=== PATIENT | female | born 1955 | race Hispanic/Latino ===

== ENCOUNTER 2017-02-27 06:46 | Day surgery (SDC) | payer MEDICARE ==
[2017-01-01 10:44] VITALS: BMI 30.2
[2017-02-27] MEDS ORDERED: Lactated Ringer's 1,000 ML IV ONE ×2 (07:41→11:30)
[2017-02-27] MEDS ORDERED: Lidocaine 1% Inj (20ml) ONE (09:10)
[2017-02-27] MEDS ORDERED: Midazolam 2 MG/2 ML VIAL ONE (10:36)
[2017-02-27] MEDS ORDERED: Propofol 10 mg/ml Inj (20 ML) ONE (10:36)
--- NOTE | 2017-02-27 11:25 | NM ---
HISTORY: 61Y Year old female with biopsy proven right to breast cancer. TECHNIQUE: Multiple injections of 150 uCi of 99m Tc filtered sulfur colloid (total volume of 0.8 Ml) were administered into the right breast tissue surrounding the lesion site. Anterior and oblique projection images of the chest were subsequently obtained. FINDINGS: 4 injection sites documented. Radionuclide was not visible beyond the injection sites on initial images and delayed images. IMPRESSION: [place] node procedure performed per institutional protocol. The patient was transported to the surgical suite at the conclusion of this study.
[2017-02-27] MEDS ORDERED: Bacitracin Opht OINT 3.5GM OU ONE (11:55)
[2017-02-27] MEDS ORDERED: Lactated Ringer's 500 ML IV ONE (12:00)
[2017-02-27] MEDS ORDERED: Oxycodone/Acetaminophen 5/325 mg Tab PO PRN (12:09)
--- NOTE | 2017-02-27 12:18 | CP.SDSHP ---
Same Day Surgery H & P - History Proposed Procedure: Right lumpectomy with sentinel lymph node biopsy Pre-Op Diagnosis: Right invasive ductal carcinoma - Previous Medical/Surgical History Previous Surgical History: Breast bipsy 10/29/16 - Allergies Allergies: Allergies No Known Allergies Allergy (Verified 01/01/17 10:44) - Physical Exam Vital Signs: Vital Signs 02/27/17 10:26 Temperature 97.9 F Pulse Rate 100 H Respiratory 18 Rate Blood Pressure 155/90 H O2 Sat by Pulse 100 Oximetry Mental Status: Alert & Oriented x3 Neuro: WNL Heart: WNL Lungs: WNL GI: WNL - {Optional Preform as Required} Breast: Other (right breast mass with needle localization) - Impression Impression: Right breast invasive ductal carcinoma Pt. Evaluated Today:Candidate for Anesthesia & Procedure: Yes - Date & Time Date: 02/27/17 Time: 09:00 Short Stay Discharge - Short Stay Discharge Admitting Diagnosis/Reason for Visit: C50.911 Disposition: HOME/ ROUTINE Referrals: Fabio Fuchs MD [Primary Care Provider] - Savage Galvan MD [Staff Provider] - Follow-up: Please follow up with Dr. Galvan in his office, call to make appointment Instructions: Excisional Breast Biopsy (DC) Additional Instructions (Diet, Activity): Please follow up with Dr. Galvan in his office in 10 days to 2 weeks, call to make appointment May remove dressing tomorrow, may shower tomorrow, do not take a bath or swim You may take Percocet as prescribed for pain If you have worsening pain, fever, vomiting, bleeding, or swelling at the site, please call Dr. Galvan's office or go to the ER
--- NOTE | 2017-02-27 12:39 | MAM ---
PROCEDURE: Needle localization with specimen radiograph HISTORY: Known right breast cancer. COMPARISON: 10/11/2016 TECHNIQUE: Standard protocol for this study/examination. FINDINGS: Informed consent obtained Time-out procedure performed. Sterile technique utilized. Needle localization procedure. 5 cm hookwire combination placed into the area of interest. Postprocedure radiograph confirms presence of the hook wire in its entirety and the area of interest, mass as well as the adjacent micro clip. IMPRESSION: Successful needle localization with confirmation specimen radiograph. Pathology results are pending.
[2017-02-27] MEDS ORDERED: HYDROmorphone 0.5 mg/0.5 ml ISec IVP PRN (12:43)
[2017-02-27] MEDS ORDERED: Lactated Ringer's 1,000 ML IV SCH (12:45)
[2017-02-27 16:21] VITALS: RESP 20
[2017-02-27 16:23] VITALS: BP 152/82; PULSE 95; TEMP 98.4; O2SAT 97
== END 2017-02-27 15:20 | disposition home or self-care (01) ==
LOC: H.OPSURG 06:46
PROVIDERS: ATTEND Surgery
DX: C50.911 Malignant neoplasm of unspecified site of right female breast (principal); Z85.3 Personal history of malignant neoplasm of breast
CPT/HCPCS: 19281; 38505; 76942; 78195; 88305; 88307; A9541; J0690; J1170; J2001; J2175; J2250; J2405; J2704; J3010; J7120